=== PATIENT | male | born 1980 | race Caucasian/White ===

== ENCOUNTER 2018-08-16 08:09 | Day surgery (SDC) | payer MEDICAID ==
[~2018-08-16] VITALS: Ht 170.2 cm; Wt 88.5 kg
[~2018-08-16 08:09] MED LIST: LACTATED RINGERS 1,000 ML IV SCH; SIMV20TA6 PO
[2018-08-16] MEDS ORDERED: LIDOCAINE HCL 1% 20ML VIAL (Pyxis) INJ ONE (09:59)
[2018-08-16] MEDS ORDERED: BACITRACIN 50,000 UNITS/VIAL ONE (10:00)
[2018-08-16] MEDS ORDERED: BUPIVACAINE HCL/PF 0.5% (5MG/ML) 10ML ONE (10:00)
[2018-08-16] MEDS ORDERED: SODIUM CHLORIDE 0.9% 1,000 ML ONE (10:00)
[2018-08-16] MEDS ORDERED: NORMAL SALINE 0.9% 10 ML SYR ONE (10:00)
[2018-08-16] MEDS ORDERED: FENTANYL CITRATE/PF 50MCG/ML 2ML VIAL ONE (10:28)
[2018-08-16] MEDS ORDERED: PROPOFOL 200MG/20ML VIAL IV ONE (10:29)
[2018-08-16] MEDS ORDERED: MIDAZOLAM HCL 2 MG/2 ML VIAL ONE (10:29)
[2018-08-16] MEDS ORDERED: METHYLENE BLUE 50 MG/10 ML AMP IV ONE (10:54)
[2018-08-16] MEDS ORDERED: LABETALOL 5MG/ML SYR 20 MG/4 ML SYRINGE IV PRN (11:00)
[2018-08-16] MEDS ORDERED: HYDROMORPHONE HCL/PF 2MG/ML CPJ IV PRN (11:00)
[2018-08-16] MEDS ORDERED: MEPERIDINE HCL/PF 25MG/ML CPJ IV PRN (11:00)
[2018-08-16] MEDS ORDERED: ONDANSETRON HCL 4MG/2ML INJ IV PRN (11:00)
[2018-08-16] MEDS ORDERED: DEXAMETHASONE 4MG/ML 1ML VIAL ONE (11:20)
== END 2018-08-16 12:15 | disposition home or self-care (01) ==
LOC: OR 08:09
PROVIDERS: ATTEND Specialist
DX: K60.3 Anal fistula (principal); E78.00 Pure hypercholesterolemia, unspecified
CPT/HCPCS: 46020; J1100; J2250; J2405; J2704; J3010; J3490; J7030; Q9968